=== PATIENT | male | born 1960 | race Caucasian/White ===

== ENCOUNTER 2017-01-22 19:37 | Inpatient (IN) | payer BC ==
[~2017-01-22] VITALS: Ht 175.3 cm; Wt 113.4 kg
--- NOTE | ~2017-01-22 | PN ---
Unit #: [id number] #: [id number] Patient: ALEJANDRO KAUFMAN [id number] [facility] [address] [place] [address] [id number] MR#: [id number] NAME: ALEJANDRO KAUFMAN ROOM: P256 Age: 56 Sex: M Admission Date: 01/22/2017 : 1960 Attending Physician: Bebeto Dao M.D. Admitting Physician: Bebeto Dao M.D. Primary Care Physician: Sha Mendiola PROGRESS NOTES DATE 01/24/2017 DISCUSSION The patient has tolerated initiation of Wellbutrin without complaint. He remains seclusive to room. However, we continue current aggressive pharmacotherapy. Dictated by... Bebeto Dao M.D. CB/bzg TD: 01/24/2017 13:22 JOB #: [id number] [facility] PROGRESS NOTES Page 1 of 1 X Bebeto Dao MD X PROGRESS NOTE
--- NOTE | ~2017-01-22 | PN ---
Unit #: [id number] #: [id number] Patient: ALEJANDRO KAUFMAN [id number] [facility] [address] [place] [address] [id number] MR#: [id number] NAME: ALEJANDRO KAUFMAN ROOM: P256 Age: 56 Sex: M Admission Date: 01/22/2017 : 1960 Attending Physician: Bebeto Dao M.D. Admitting Physician: Bebeto Dao M.D. Primary Care Physician: Sha Mendiola PROGRESS NOTES DATE 01/25/2017 DISCUSSION The patient is in brighter spirits. He is reporting improved energy and shows significant improvement. He is expressing interest in participation in the intensive outpatient program once discharge take place. If he sustains his progress at this rate, we should be looking at a.m. discharge. Dictated by... Bebeto Dao M.D. CB/bzg TD: 01/25/2017 14:02 JOB #: [id number] [facility] PROGRESS NOTES Page 1 of 1 X Bebeto Dao MD X PROGRESS NOTE
--- NOTE | ~2017-01-22 | DS ---
Unit #: [id number] #: [id number] Patient: ALEJANDRO KAUFMAN [id number] [place] [address] [id number] MR#: [id number] NAME: ALEJANDRO KAUFMAN. ROOM: P256 Age: 56 Sex: M Admission Date: 01/22/2017 : 1960 Discharge Date: 01/26/2017 Attending Physician: Bebeto Dao M.D. Primary Care Physician: Fco Mar M.D. DISCHARGE SUMMARY REASON FOR ADMISSION The patient is a 56-year-old white male admitted with increasing depressive symptoms, anhedonia, lack of motivation, energy and some vague suicidal thoughts. HOSPITAL COURSE The patient was admitted to the [address] [place] [address] unit and continued on previously prescribed medications. His primary care physician had the patient on the interesting combination of Geodon, Lamictal, and Effexor XR. These medications were continued and Wellbutrin XL 150 mg daily was added. The patient's medication regimen will be continuously reassessed during his participation in the intensive outpatient program, particularly with regards to ziprasidone given the absence of psychosis noted during the patient's stay in the hospital. Whatever the case, the patient's stay in the hospital was a brief and uneventful one. His mood improved considerably and he was active within the therapeutic milieu. He tolerated initiation of Effexor XR without complaint and by 01/26 was in much brighter spirits, denying suicidal ideation. Discharge was ordered. FINAL DIAGNOSIS 1. Major depressive disorder, severe, recurrent without psychotic features. 2. Hypertension. FOLLOWUP CARE Followup to take place through the auspices of community mental health resources and the intensive outpatient program provided by [facility]. DISCHARGE MEDICATIONS The patient is discharged on the following medications: 1. Lamictal 200 mg b.i.d. for mood stabilization 2. Effexor XR 150 mg once daily for depression. 3. Percocet 10/325 one tablet four times daily for pain. 4. Norvasc 5 mg daily for hypertension. 5. Wellbutrin XL 150 mg daily for depression. 6. Geodon 80 mg at bedtime for mood stabilization. PROGNOSIS Fair. DIET AND ACTIVITY Unit #: [id number] #: [id number] Patient: ALEJANDRO KAUFMAN No dietary or physical restrictions are placed upon the patient at the time of discharge. Dictated by... Bebeto Dao M.D. CB/tina TD: 01/27/2017 19:22 JOB #: [id number] DISCHARGE SUMMARY Page 1 of 1 X Bebeto Dao MD X DISCHARGE SUMMARY
--- NOTE | ~2017-01-22 | HP ---
Unit #: [id number] #: [id number] Patient: JOELLEN KAUFMAN [id number] [place] [address] [id number] I MR#: [id number] NAME: JOELLEN KAUFMAN. ROOM: P251 Age: 56 Sex: M Admission Date: 01/22/2017 : 1960 Attending Physician: Bebeto Dao M.D. Admitting Physician: Bebeto Dao M.D. Primary Care Physician: Fco Mar M.D. HISTORY AND PHYSICAL HISTORY OF PRESENT ILLNESS Joellen is a 56-year-old gentleman admitted [facility] with depression verbalizing wanting to hurt himself. PAST MEDICAL HISTORY 1. High blood pressure. 2. COPD. PAST SURGICAL HISTORY 1. Cholecystectomy. 2. Low back. 3. T and A. 4. Bilateral inguinal hernia repairs. ALLERGIES No known drug allergies. SOCIAL HISTORY Smokes 1 pack per day. Denies alcohol and illicit drug use. FAMILY HISTORY Medically noncontributory. REVIEW OF SYSTEMS CONSTITUTIONAL: No fever or chills. HEENT: Denies any sore throat, ear pain or runny nose. CARDIOVASCULAR: Denies chest pain, irregular heart rhythm or palpitations. CHEST: Denies shortness of breath or cough. No hemoptysis. GASTROINTESTINAL: Denies nausea, vomiting, diarrhea or chronic constipation. ENDOCRINE: Denies history of increased thirst or urination. No recent significant weight loss or gain. GENITOURINARY: Denies dysuria, frequency, or hematuria. SKIN: Denies any rashes. HEMATOLOGIC: Denies history of increased bleeding or bruising. MUSCULOSKELETAL: Denies any hot, swollen joints. No generalized muscle pain. NEUROLOGIC: Denies problems with vision or speech. No frequent, severe headaches. No numbness, tingling or weakness in any extremities. Denies loss of bladder or bowel control. CURRENT MEDICATIONS 1. Nicotine patch 14 mg daily. Unit #: [id number] #: [id number] Patient: JOELLEN KAUFMAN 2. Milk of Magnesia p.r.n. 3. Maalox p.r.n. 4. Tylenol p.r.n. PHYSICAL EXAMINATION GENERAL: Alert, well-nourished, in no apparent distress. VITAL SIGNS: Blood pressure 120/70, heart rate 80, respirations 16, temperature 98.6. WEIGHT: 250. HEIGHT: 5 feet 9 inches. SKIN: Warm and dry without rash or lesion. HEENT: Normocephalic. TMs not viewed. Oral and nasal passages clear. Conjunctivae clear. PERRLA. EOMs intact. NECK: Supple without lymphadenopathy or thyromegaly. HEART: Regular rate and rhythm without murmur. LUNGS: Clear. ABDOMEN: Soft, nontender. : Not done. EXTREMITIES: No evidence of cyanosis, clubbing or edema. Moves all without focal deficit. NEUROLOGICAL: Grossly within normal limits. Cranial Nerves: II: Visual saul are intact. III, IV AND : Extraocular movements are intact. Pupils are equal, round and reactive to light. V: Facial sensation is grossly normal. VII: Facial movements and expression are normal. VIII: Auditory acuity grossly intact. IX, X: Uvula is midline. Phonation is normal. XI: Patient shrugs shoulders and turns head normally. XII: Tongue protrudes in the midline. Sensory and Motor Function: Sensory and motor sensation is grossly normal. Motor: moves all extremities well. Coordination: Gait is normal. Deep Tendon Reflexes: Intact. IMPRESSION Psychiatric admission. RECOMMENDATIONS PSYCHIATRIC: Per psychiatrist. MEDICAL: See no contraindication to participate in facility's activities. MEDICAL PROGNOSIS Good. MEDICAL CONDITION Stable. Dictated by... Mirela Leigh P.A.-C. for Sha Ramsey/tina TD: 01/23/2017 15:55 JOB #: [id number] Unit #: [id number] #: [id number] Patient: JOELLEN KAUFMAN HISTORY AND PHYSICAL Page 1 of 1 X Mirela Leigh HISTORY AND PHYSICAL
--- NOTE | ~2017-01-22 | PA ---
Unit #: [id number] #: [id number] Patient: ALEJANDRO KAUFMAN [id number] [facility] [address] [place] [address] [id number] MR#: [id number] NAME: ALEJANDRO KAUFMAN. ROOM: P251 Age: 56 Sex: M Admission Date: 01/22/2017 : 1960 Date of Assessment: 01/23/2017 Attending Physician: Bebeto aDo M.D. Admitting Physician: Bebeto Dao M.D. Primary Care Physician: Fco Mar M.D. PSYCHIATRIC ASSESSMENT IDENTIFYING INFORMATION The patient is a 56-year-old white male admitted with worsening depression. CHIEF COMPLAINT "Battling depression." INFORMANT Patient, reliability is good. HISTORY OF PRESENT ILLNESS The patient is a 56-year-old white male admitted after he had presented to this facility voicing positive suicidal ideation. The patient's had reported that the patient is now spending 22 hours a day in his room leaving only to go to the bathroom and to go inside and smoke. 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 The patient has estranged himself from his family. He is reporting low energy, hopelessness, helplessness, and thoughts of suicide. He reports no specific plan but does own firearms. The patient denies abuse of alcohol and street drugs. She is a smoker. He lives with his and describes their relationship as a positive one. The patient has never seen a psychiatrist, but he is on a fairly complex psychotropic medication regimen including the Geodon, Lamictal, and Effexor. PAST PSYCHIATRIC HISTORY As above. The patient has never been psychiatrically hospitalized. Denies prior suicide attempts or gestures. As noted previously, Geodon, Lamictal, and Effexor have been prescribed by his primary care physician. PAST MEDICAL HISTORY The patient suffers from chronic pain. MEDICATIONS Geodon, Lamictal, Effexor, and Percocet. ALLERGIES None reported. FAMILY HISTORY Noncontributory. 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 He denies use of alcohol or street drugs but is a smoker. MENTAL STATUS EXAMINATION Examination at this time reveals the patient to be a well-developed well-nourished somewhat disheveled white male appearing stated age. He is in no apparent physical distress at the time of examination. He is awake, alert, and oriented in all spheres. His mood is dysphoric, his affect blunted. Speech is generally well-coherent. There are no gross deficits in memory or cognition noted. Intelligence is judged to be in the average range based on fund of knowledge. The patient is cooperative throughout the interview. He is currently endorsing positive suicidal ideation. He denies homicidal ideation. He denies any psychotic symptoms. His judgment and insight appear to be intact. ASSETS AND LIABILITIES The patient's assets: Motivation for change. Liabilities: Unemployment. DIAGNOSTIC IMPRESSION 1. Major depressive disorder, recurrent, severe without psychotic features. 2. Low back pain. 3. Hypertension. TREATMENT PLAN The patient remains hospitalized for safety and stabilization. It is unclear why the patient is on Lamictal and Geodon as he presents no real history which would deem consistent with a bipolar spectrum disorder. I will go ahead and add Wellbutrin XL to his currently prescribed medication regimen, and the patient will be encouraged to participate in appropriate order of milieu activities and look to be a good candidate for participation in intensive outpatient programming following discharge which should take place within 5 to 7 days. Dictated by... Bebeto Dao M.D. Diya TD: 01/23/2017 13:32 JOB #: [id number] PSYCHIATRIC ASSESSMENT Page 1 of 1 X Bebeto Dao MD PSYCHIATRIC ASSESSMENT
[~2017-01-22 19:37] MED LIST: AMBIEN10 MG PO; ASPIRIN PO; ASPIRIN81 MG PO; CELEXA20 MG PO; COREG3.125 MG PO; DESYREL50 M1 PO; DIOVAN160 MG PO; EFFEXOR XR75 MG PO; FLEXERIL10 MG PO; HCTZ PO; KEPPRA500 MG PO; LAMICTAL XR250 MG PO; LISINOPRIL-HCTZ1 T15 PO; PERCOCET10 PO; PERCOCET5/325 PO; RISPERDAL4 MG PO; ROBITUSSIN A-C S5 ML PO; SALINE45 ML NS; TOPROL XL PO; VOLTAREN75 MG PO; ZESTRIL40 MG PO; ZITHROMAX500 MG PO; [UNRECOGNIZED DRUG - REMARK]; [UNRECOGNIZED DRUG - REMARK]
[2017-01-23 09:41] LABS: URINE APPEARANCE CLEAR; URINE BILIRUBIN NEG (NEG); URINE BLOOD NEG (NEG); URINE COLOR YELLOW; URINE GLUCOSE NEG (NEG); URINE KETONE NEG (NEG); URINE LEUKOCYTE ESTERASE NEG (NEG); URINE NITRATE NEG (NEG); URINE PROTEIN NEG (NEG); URINE SPECIFIC GRAVITY 1.011 (1.003-1.035); URINE UROBILINOGEN 0.2 MG/DL (NEG)
[2017-01-23 10:11] LABS: AMPHETAMINE NEG (NEG); BARBITURATES NEG (NEG); BENZODIAZEPINES NEG (NEG); COCAINE NEG (NEG); MARIJUANA NEG (NEG); OPIATES NEG (NEG); TRICYCLIC ANTIDEPRESSANTS NEG (NEG); U METHADONE NEG (NEG)
[2017-01-23 12:33] LABS: BASOPHIL# 0.1 X10e3 (0-0.3); BASOPHIL% 0.7 % (0-2.5); EOSINOPHIL# 0.3 X10e3 (0-0.7); HEMATOCRIT 43.3 % (38.0-50.0); HEMOGLOBIN 15.3 gm/dL (13.0-16.0); LYMPHOCYTE# 1.8 X10e3 (1.0-3.5); LYMPHOCYTE% 21.6 % (17.0-45.0); MEAN CELL VOLUME 84.5 FL (83-96); MEAN CORPUSCULAR HEMOGLOBIN 29.9 PG (28-34); MEAN CORPUSCULAR HGB CONC 35.4 g/dL (30-36); MEAN PLATELET VOLUME 7.3 FL (6.5-11.5); MONOCYTE# 0.7 X10e3 (0-1.0); MONOCYTE% 8.2 % (3.0-12.0); NEUTROPHIL# 5.7 X10e3 (1.5-7.1); NEUTROPHIL% 66.5 % (40-75); PLATELET COUNT 244 X10e3 (140-420); RED BLOOD COUNT 5.12 X10e (3.90-5.60); RED CELL DISTRIBUTION WIDTH 13.1 % (11.0-15.5); WHITE BLOOD COUNT 8.5 X10e3 (4.0-10.5)
[2017-01-23 12:40] LABS: DIFF IND NO
[2017-01-23 12:45] LABS: BILIRUBIN,TOTAL 0.6 mg/dL (0.2-2.0); BUN/CREATININE RATIO 13.33; CALCIUM SERUM 9.8 mg/dL (8.4-10.2); CREATININE SERUM 0.9 mg/dL (0.6-1.4); GLOM FILT RATE Estimated 94.5 mL/min (>60); POTASSIUM 3.7 mmol/L (3.5-5.1); PROTEIN TOTAL SERUM 6.5 g/dL (6.0-8.3)
== END 2017-01-26 16:03 | disposition home or self-care (01) | DRG 885 ==
LOC: P2L 23:19
PROVIDERS: Specialist
DX: F33.2 Major depressive disorder, recurrent severe without psychotic features (principal); I10 Essential (primary) hypertension; M54.5 Low back pain; J44.9 Chronic obstructive pulmonary disease, unspecified; Z90.49 Acquired absence of other specified parts of digestive tract; F17.200 Nicotine dependence, unspecified, uncomplicated
CPT/HCPCS: 80053; 80307; 81003; 85025